=== PATIENT | female | born 1985 | race Caucasian/White ===

== ENCOUNTER 2019-09-05 18:32 | Emergency (ER) | payer OTHER, SELFPAY ==
[2019-09-05 18:40] VITALS: BP 104/77; PULSE 84; RESP 16; TEMP 37.1; O2SAT 100
--- NOTE | 2019-09-05 19:00 | ED.FEVER ---
HPI - Fever General Chief Complaint: Fever Stated Complaint: FEVER/CHILLS S/P TAKING LEXAPRO Time Seen by Provider: 09/05/19 18:45 Source: patient Mode of arrival: ambulatory Limitations: no limitations History of Present Illness HPI Narrative: 34-year-old female presents for evaluation of symptoms that developed today. She is reporting chills, sweats, temp of 99.5. She reported starting Lexapro on Tuesday, 3 days ago. She read on the booklet if she had fever, chills, sweats to see her doctor. She reports URI symptoms 1.5 weeks ago that have mostly improved. She reports chest pain, shortness of breath in the last year and has been evaluated by cardiology who believes it to be anxiety and started her on Lexapro. Patient denies any abnormal swelling, numbness, tingling, itching, rash, nausea, vomiting, GI upset, urinary symptoms. Did not get a flu shot this season Related Data Home Medications Medication Instructions Recorded Confirmed norethindrone (contraceptive) 0.35 0.35 mg PO DAILY 08/02/19 mg tablet Allergies Allergy/AdvReac Type Severity Reaction Status Date / Time venom-honey bee Allergy Unknown Unknown Verified 08/02/19 15:47 hydrocodone AdvReac Unknown N/V Verified 08/02/19 15:47 metronidazole AdvReac Unknown N/V Verified 08/02/19 15:47 Review of Systems Review of Systems: Narrative: CONSTITUTIONAL: Denies fever,weight loss.reports chills, temp 99.5, sweats. EYES: Denies visual changes, redness, or discharge. ENT: Denies rhinorrhea, congestion, sore throat, or otalgia. CARDIOVASCULAR: Denies chest pain, palpitations, or edema. RESPIRATORY: Denies cough or dyspnea. GASTROINTESTINAL: Denies abdominal pain, nausea, vomiting, or diarrhea. GENITOURINARY: Denies dysuria, hematuria, urinary frequency, malordous urine SKIN: Denies rash or itching. MUSCULOSKELETAL: Denies back pain, joint pain, myalgia, swelling NEUROLOGIC: Denies headache, numbness, or weakness. PSYCHIATRIC: Denies depression. Reports anxiety All systems reviewed & are unremarkable except as noted in HPI and below PMFSH Surgical History Surgical History Hx of cholecystectomy (~06/14/16) [place] teeth extracted Family History Family History Mother Hypertension Family history of diabetes mellitus in first degree relative Grandparent Malignant neoplasm of prostate Family history of malignant neoplasm of kidney Father Family history of liver disease Other Family history of allergic disorder Social History Social History Smoking status: Former smoker Smoking end date: 08/29/11 Alcohol intake: current Comments At the time of my signature, I agree with nursing past medical, surgical, social and family history. There is no relevant family history pertinent to the presenting complaint. Exam Narrative: Exam Narrative: GENERAL: No distress, well appearing, well nourished, alert and calm HEAD: Normocephalic, atraumatic. EYES: Pupils equal, round. Extraocular movements intact. Conjunctivae without redness or drainage. NOSE: Nares patent. Nasal turbinates noninflamed. No nasal discharge MOUTH: Mucous membranes moist. No lesions. No cyanosis. Dentition grossly normal. THROAT: Oropharynx without signs erythema, exudates or lesions. Tonsils not enlarged. NECK: Supple. No lymphadenopathy. RESPIRATORY: Airway patent. Chest clear to auscultation bilaterally. Breath sounds equal bilaterally. No retractions. CARDIOVASCULAR: Regular rate and rhythm. No murmurs, rubs, gallops, or clicks. Capillary refill <2 seconds. GASTROINTESTINAL: Soft, nontender, non-distended. Bowel sounds normoactive. No masses. No organomegaly. No CVA tenderness MUSCULOSKELETAL: Range of motion grossly normal in all four extremities. Strength grossly normal in all four extremities. No edema. No
--- NOTE | 2019-09-05 19:07 | PC.NURSE ---
PATIENT C/O FEVER AND CHILLS WHICH STARTED TODAY NO OTHER SX, FEVER AT HOME TODAY 99.5 IS CONCERNED BECAUSE SHE STARTED LEXAPRO AND READ THIS COULD BE A SIDE EFFECT
== END 2019-09-05 19:18 | disposition home or self-care (01) ==
PROVIDERS: Emergency Provider Nurse Practitioner; PCP Family Medicine
DX: B34.9 Viral infection, unspecified (principal); F41.9 Anxiety disorder, unspecified; Z87.891 Personal history of nicotine dependence
CPT/HCPCS: 87804; 99213; G0463

== ENCOUNTER 2023-02-15 15:21 | Outpatient (CLI) | payer OTHER, SELFPAY ==
[2023-02-15 15:35] LABS: Kit Draw Collected
== END 2023-02-15 15:22 | disposition home or self-care (01) ==
LOC: ANHGOSHLAB 15:23
PROVIDERS: PCP Family Medicine; Visit Provider Nurse Practitioner Family
DX: R00.1 Bradycardia, unspecified (principal)
CPT/HCPCS: 36415

== ENCOUNTER 2023-03-18 14:37 | Outpatient (CLI) | payer OTHER, SELFPAY ==
--- NOTE | 2023-03-24 12:40 | WPDHOLTEREM ---
Holter/Event Monitor Holter/Event Monitor Date of procedure: 03/18/23 Holter/Event Procedure: 48 Hr Holter Monitor Indications: Bradycardia Conclusion: 1. 48 hour holter on 03/18/23. 2. Underlying rhythm is sinus rhythm. HR range 44-136 bpm; average HR 75 bpm. HR at 44 bpm at 02:14. 3. There are 3 premature supraventricular complexes. No supraventricular tachycardia. 4. No premature ventricular complexes. No ventricular tachycardia. 5. No sinoatrial or atrioventricular blocks. No significant pauses greater than 2 seconds. 6. No symptoms available for correlation.
== END 2023-03-18 14:38 | disposition home or self-care (01) ==
LOC: ANHCARD 14:38
PROVIDERS: PCP Family Medicine; Visit Provider Nurse Practitioner Family
DX: R00.1 Bradycardia, unspecified (principal)
CPT/HCPCS: 93225; 93226